=== PATIENT | female | born 1955 | race Caucasian/White ===

== ENCOUNTER 2024-02-01 16:01 | Emergency (ER) | payer MEDICARE, SELFPAY ==
--- NOTE | ~2024-02-01 | XR_ITS ---
EXAMINATION: XR foot RT min 3V DATE: 02/01/2024 16:25 INDICATION: Right foot injury. TECHNIQUE: 4 views of right foot were obtained. COMPARISON: None. FINDINGS: There is a nondisplaced comminuted intra-articular fracture of base of fifth metatarsal. Th ere is a chip of bone distal to lateral malleolus. 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 There are enthesophytes at the posterior and plantar as pects of calcaneal tuberosity. IMPRESSION: 1. Nondisplaced comminuted intra-articular fracture of base of fifth metatarsal. 2. Chip of bone distal to lateral malleolus, which may be an acute avulsion fracture or a chronic fin ding. Reviewed, dictated and finalized at location A. IMPRESSION: 1. Nondisplaced comminuted intra-articular fracture of base of fifth metatarsal . 2. Chip of bone distal to lateral malleolus, which may be an acute avulsion fra cture or a chronic finding.
--- NOTE | ~2024-02-01 | XR_ITS ---
EXAMINATION: XR ankle RT min 3V DATE: 02/01/2024 16:25 INDICATION: Right ankle injury. TECHNIQUE: 4 views of right ankle were obtained. COMPARISON: None. FINDINGS: There is an oblique fracture of base of fifth metatarsal. There is a chip of bone distal to lateral malleolus. There is mild midfoot osteoarthritis. There are enthesophytes at the posterior an d plantar aspects of calcaneal tuberosity. Ankle soft tissue swelling is noted. IMPRESSION: 1. Oblique fracture of base of fifth metatarsal. 2. Chip of bone distal to lateral malleolus, which may be an acute avulsion fracture or a chronic fin ding. Reviewed, dictated and finalized at location A. IMPRESSION: 1. Oblique fracture of base of fifth metatarsal. 2. Chip of bone distal to lateral malleolus, which may be an acute avulsion fra cture or a chronic finding.
[2024-02-01 16:04] VITALS: BP 140/73; PULSE 76; RESP 18; TEMP 36.6; O2SAT 96
--- NOTE | 2024-02-01 17:01 | ED.LOWEXIN ---
HPI - Extremity Injury (Lower) General Chief Complaint: Extremity Injury, Lower Stated Complaint: right foot injury Time Seen by Provider: 02/01/24 16:10 History of Present Illness HPI Narrative: 69-year-old female presents to the emergency room for evaluation of right ankle and foot pain following a fall. Patient states that she stepped down a couple steps and rolled her ankle. Patient states has increased pain with ambulation. No history of right ankle or foot fractures. Denies any other injuries. Related Data Allergies Allergy/AdvReac Type Severity Reaction Status Date / Time No Known Allergies Allergy Verified 02/01/24 16:01 Review of Systems Review of Systems: ROS unremarkable except for noted in HPI Exam Narrative: GENERAL: Well-appearing, well-nourished, no physical limitations, and in no acute distress. HEAD: Normocephalic, atraumatic. EYES: Conjunctivae normal, PERRLA and EOMI. CHEST: Clear to auscultation. No respiratory distress. No wheezes rales or rhonchi. HEART: Regular rate and rhythm. No murmur heard. Normal peripheral pulses. EXTREMITIES: RLE: +TTP to base of 5th metatarsal and lateral malleolus. STS noted to lateral ankle and dorsal midfoot. No obvious bony abnormality. No ecchymosis. Neurovascular is intact distally SKIN: Warm, dry, no rash. No noted wounds NEURO: No focal deficits. Alert and oriented x3. MAEW. CN's II-XI intact bilaterally, normal gait PSYCH: Cooperative. Normal mood and affect. Course Vital Signs Vital signs: Vital Signs Temperature 36.6 C 02/01/24 16:04 Pulse Rate 76 02/01/24 16:04 Respiratory Rate 18 02/01/24 16:04 Blood Pressure 140/73 02/01/24 16:04 Pulse Oximetry 96 02/01/24 16:04 Oxygen Delivery Room Air 02/01/24 16:04 Temperature 36.6 C 02/01/24 16:04 Pulse Rate 76 02/01/24 16:04 Respiratory Rate 18 02/01/24 16:04 Blood Pressure 140/73 02/01/24 16:04 Pulse Oximetry 96 02/01/24 16:04 Oxygen Delivery Room Air 02/01/24 16:04 Discharge Plan Discharge Clinical Impression: Foot fracture, right, Ankle fracture, right Patient Disposition: Home, Self-Care Condition: Stable Instructions: Antibiotic Form Prescriptions: New hydrocodone-acetaminophen 5-325 mg tablet 1 tablet PO Q8H PRN (Reason: pain) Qty: 20 0RF Follow-up/Referrals: PHYSICIAN,QUANTITATIVE CONSULTANT [Non-Staff] - Time of Disposition: 17:02
[2024-02-01 17:38] VITALS: BP 138/81; PULSE 71; RESP 16; TEMP 36.8; O2SAT 100
== END 2024-02-01 17:39 | disposition home or self-care (01) ==
PROVIDERS: Emergency Provider Nurse Practitioner Family
DX: S92.354A Nondisplaced fracture of fifth metatarsal bone, right foot, initial encounter for closed fracture (principal); S82.61XA Displaced fracture of lateral malleolus of right fibula, initial encounter for closed fracture; X50.9XXA Other and unspecified overexertion or strenuous movements or postures, initial encounter
CPT/HCPCS: 29515; 73610; 73630; 99284